=== PATIENT | male | born 1960 | race American Indian/Alaskan Native ===

== ENCOUNTER 2017-10-30 11:00 | Emergency (ER) | payer BC ==
[2017-10-30 11:15] VITALS: BP 146/91
--- NOTE | 2017-10-30 11:50 | ED PDOC ---
Arrival/HPI - General Chief Complaint: Back Pain Time Seen by Provider: 10/30/17 11:50 - History of Present Illness Narrative History of Present Illness (Text): 10/30/17 11:50 A 57 year old male, whose past medical history includes herniated disks in the lower back, presents to the emergency department complaining of lower back pain since yesterday. Patient reports pain is radiating to his right leg and he cannot stand up for an extended length of time. Patient also reports he is currently taking vitamin D and percocets prescribed from his PMD. Patient denies any fever, chills, shortness of breath, chest pain, diarrhea, nausea, vomiting, urinary symptoms, neck pain, headache, dizziness, or any other complaints. PMD: Dr. Corrales Time/Duration: 24 hours (yesterday) Symptom Onset: Gradual Symptom Course: Unchanged Activities at Onset: Light Context: Home Past Medical History - Provider Review Nursing Documentation Reviewed: Yes - Infectious Disease Hx of Infectious Diseases: None - Cardiac Hx Cardiac Disorders: Yes Hx Hypertension: Yes - Pulmonary Hx Respiratory Disorders: No - Musculoskeletal/Rheumatological Hx Back Pain: Yes Hx Herniated Disk: Yes - Gastrointestinal Hx Gastrointestinal Disorders: No - Genitourinary/Gynecological Hx Genitourinary Disorders: No - Psychiatric Hx Psychophysiologic Disorder: No Hx Substance Use: No - Surgical History Hx Orthopedic Surgery: Yes - Anesthesia Hx Anesthesia: Yes Hx Anesthesia Reactions: No Family/Social History - Physician Review Nursing Documentation Reviewed: Yes Family/Social History: Unknown Family HX Smoking Status: Unknown If Ever Smoked Hx Alcohol Use: No Hx Substance Use: No Allergies/Home Meds Allergies/Adverse Reactions: Allergies No Known Allergies Allergy (Verified 10/30/17 11:14) Home Medications: Home Meds Medication Instructions Recorded Confirmed Valsartan 320 mg PO DAILY 10/30/17 10/30/17 Review of Systems - Physician Review All systems were reviewed & negative as marked: Yes - Review of Systems Constitutional: absent: Fevers, Night Sweats Respiratory: absent: SOB Cardiovascular: absent: Chest Pain Gastrointestinal: absent: Diarrhea, Nausea, Vomiting Genitourinary Male: absent: Urinary Output Changes Musculoskeletal: Back Pain (pain radiates down to his right leg). absent: Normal, Arthralgias, Neck Pain, Joint Swelling, Myalgias Neurological: absent: Headache, Dizziness Physical Exam Vital Signs Reviewed: Yes Vital Signs Temp Pulse Resp BP Pulse Ox 10/30/17 11:12 98.1 F 72 18 146/91 H 98 Temperature: Afebrile Blood Pressure: Hypertensive Pulse: Tachycardic Respiratory Rate: Normal Appearance: Positive for: Well-Appearing, Non-Toxic, Comfortable Pain Distress: None Mental Status: Positive for: Alert and Oriented X 3 - Systems Exam Head: Present: Atraumatic, Normocephalic Pupils: Present: PERRL Extroacular Muscles: Present: EOMI Conjunctiva: Present: Normal Mouth: Present: Moist Mucous Membranes Neck: Present: Normal Range of Motion Respiratory/Chest: Present: Clear to Auscultation, Good Air Exchange. No: Respiratory Distress, Accessory Muscle Use Cardiovascular: Present: Regular Rate and Rhythm, Normal S1, S2. No: Murmurs Abdomen: No: Tenderness, Distention, Peritoneal Signs Back: No: Midline Tenderness Upper Extremity: Present: Normal Inspection. No: Cyanosis, Edema Lower Extremity: Present: NORMAL PULSES, Normal ROM (full ROM of right hip ), Tenderness, Other (Mild tenderness near SI joint). No: Normal Inspection, Edema , CALF TENDERNESS, Cyanosis, Shalom's Sign Neurological: Present: GCS=15, CN II-XII Intact, Speech Normal Skin: Present: Warm, Dry, Normal Color. No: Rashes Psychiatric: Present: Alert, Oriented x 3, Normal Insight, Normal Concentration Medical Decision Making ED Course and Treatment: 10/30/17 12:55 Impression: 57 year old male presenting to the emergency department complaining of lower back pain. Plan: -- Flexeril -- Decadron Injection -- Toradol -- Xray of LS Spine with OBL -- Reassess and disposition Prior Visits: Notes and results from previous visits were reviewed. Progress Notes: 10/30/17 12:49 patient with hx lumbar HNP presents with recurrent low back pain with radicular pain. no acute neuro deficits. xray done to rule out overt bony pathology. patient informed to follow up with his pcp for further eval which may include another MRI. patient remained stable throughout ED course. secondarily, patient reports itching in the right ear-there was no pain and on inspection there was no irritation of the ear canal and the TM was clear without effusion - RAD Interpretation Radiology Orders: 10/30/17 11:50 LS SPINE WITH OBL > 18 YRS OLD [RAD] Stat - Medication Orders Current Medication Orders: Discontinued Medications Cyclobenzaprine HCl (Flexeril) 5 mg PO STAT STA Stop: 10/30/17 11:51 Last Admin: 10/30/17 12:21 Dose: 5 mg Dexamethasone (Decadron Inj) 10 mg IM STAT STA Stop: 10/30/17 11:52 Last Admin: 10/30/17 12:22 Dose: 10 mg IM Administration Charges Document 10/30/17 12:22 [email or web address] (Rec: 10/30/17 12:22 [email or web address] [id number]) Injection Site MAR Injection Site Right Gluteus Lucius Charges for Administration # of IM Administrations 1 Ketorolac Tromethamine (Toradol) 60 mg IM STAT STA Stop: 10/30/17 11:51 Last Admin: 10/30/17 12:21 Dose: 60 mg MAR Pain Assessment Document 10/30/17 12:21 [email or web address] (Rec: 10/30/17 12:21 [email or web address] [id number]) Pain Reassessment Is this a pain reassessment? No Sleep Is patient sleeping during reassessment? No Presence of Pain Presence of Pain Yes Pain Scale Used Pain Scale Used Numeric Location Pain Location Body Site Generalized Description Description Constant Intensity of Pain at present 8 Pain Behavior Facial Grimacing Aggravating Factors Changing Position Alleviating Factors/Management Medication Techniques Alleviating Factors Medication IM Administration Charges Document 10/30/17 12:21 [email or web address] (Rec: 10/30/17 12:21 [email or web address] [id number]) Injection Site MAR Injection Site Right Gluteus Lucius Charges for Administration # of IM Administrations 1 - Scribe Statement The provider has reviewed the documentation as recorded by the Yuriibjustus Rascon All medical record entries made by the Yuriibjustsu were at my direction and personally dictated by me. I have reviewed the chart and agree that the record accurately reflects my personal performance of the history, physical exam, medical decision making, and the department course for this patient. I have also personally directed, reviewed, and agree with the discharge instructions and disposition. Disposition/Present on Arrival - Present on Arrival Any Indicators Present on Arrival: No History of DVT/PE: No History of Uncontrolled Diabetes: No Urinary Catheter: No History of Decub. Ulcer: No History Surgical Site Infection Following: None - Disposition Have Diagnosis and Disposition been Completed?: Yes Diagnosis: Radiculopathy of lumbosacral region Disposition: HOME/ ROUTINE Disposition Time: 12:51 Patient Plan: Discharge Patient Problems: Current Active Problems Problem Status Onset Radiculopathy of lumbosacral region Acute Condition: STABLE Discharge Instructions (ExitCare): Radiculopathy Print Language: CHINESE Additional Instructions: RASHAD YAP, thank you for letting us take care of you today. Your provider was Dr. Macario Boss and you were treated for back pain. The emergency medical care you received today was directed at your acute symptoms. If you were prescribed any medication, please fill it and take as directed. It may take several days for your symptoms to resolve. Return to the Emergency Department if your symptoms worsen, do not improve, or if you have any other problems. Please contact your doctor or call one of the physicians/clinics you have been referred to that are listed on the Patient Visit Information form that is included in your discharge packet. Bring any paperwork you were given at discharge with you along with any medications you are taking to your follow up visit. Our treatment cannot replace ongoing medical care by a primary care provider outside of the emergency department. Thank you for allowing the [facility] team to be part of your care today. If you had an X-Ray or CT scan: A Radiologist will review the ED reading if any change in treatment is needed we will contact you. If you had a blood, urine, or wound culture: It will take several days for the results, if any change in treatment is needed we will contact you. If you had an STI test: It will take 48 hours for the results. Please call after 1 week if you have not heard back. Prescriptions: Cyclobenzaprine [Flexeril] 5 mg PO TID #15 tab Ibuprofen [Motrin Tab] 600 mg PO QID #42 tab Prednisone [Deltasone] 20 mg PO DAILY 5 Days #10 tablet Referrals: Dena Corrales MD [Primary Care Provider] - Follow up with primary Forms: [employer] (Gabonese), WORK NOTE
[2017-10-30 13:03] VITALS: PULSE 75; RESP 19; TEMP 98; O2SAT 99
--- NOTE | 2017-10-30 15:44 | RAD ---
Date of service: 10/30/2017 PROCEDURE: Radiographs of the Lumbar Spine. HISTORY: Pain COMPARISON: No prior. FINDINGS: BONES: No evidence of acute compression fracture nor retropulsed fragments. Vertebral bodies exhibit normal stature of. Vertebral bodies and facets normally aligned. DISC SPACES: There is mild disc space narrowing L5-S1 and L4-L5 levels. The facet joints also quite hypertrophic L5-S1, L4-L5 and to a lesser degree L3-L4 levels. Mild facet overgrowth L2-L3 level. Small marginal osteophyte formation seen at several lower thoracic and upper lumbar levels. OTHER FINDINGS: Questionable old healed fracture deformities of the left symphysis IMPRESSION: No acute fractures. Multilevel degenerative spondylosis as described.
== END 2017-10-30 13:02 | disposition home or self-care (01) ==
LOC: ED 11:00
DX: M54.17 Radiculopathy, lumbosacral region (principal); I10 Essential (primary) hypertension
CPT/HCPCS: 72110; 96372; 99282; J1100; J1885

== ENCOUNTER 2017-11-05 14:20 | Inpatient (IN) | payer BC ==
[2017-11-05 16:28] LABS: BASO # 0.01 K/mm3 (0.0-2.0); BASO % 0.1 % (0.0-3.0); EOS % 0.4 % (1.5-5.0); GRAN # 6.25 (1.4-6.5); GRAN % 63.8 % (50.0-68.0); HEMOGLOBIN 14.6 g/dL (14.0-18.0); LYMPH # 2.6 (1.2-3.4); LYMPH % 26.2 % (22.0-35.0); MEAN CELL VOLUME 83.2 fl (80.0-105.0); MEAN CORPUSCULAR HEMOGLOBIN 27.2 pg (25.0-35.0); MEAN CORPUSCULAR HGB CONC 32.7 g/dl (31.0-37.0); MEAN PLATELET VOLUME 9.3 fl (7.0-11.0); MONO # 0.9 (0.1-0.6); MONO % 9.5 % (1.0-6.0); RBC 5.36 10^6/uL (3.5-6.1); RED CELL DISTRIBUTION WIDTH 14.3 % (11.5-14.5); WHITE BLOOD COUNT 9.8 10^3/ul (4.5-11.0)
[2017-11-05 16:35] LABS: ALB/GLOB RATIO 1.3 (1.1-1.8); ALBUMIN 4.4 g/dL (3.0-4.8); ALT/SGPT 28 U/L (7-56); AST/SGOT 31 U/L (17-59); BLOOD UREA NITROGEN 15 mg/dL (7-21); CALCIUM 10.6 mg/dL (8.4-10.5); GFR NON-AFRICAN AMERICAN > 60
--- NOTE | 2017-11-05 17:20 | ED PDOC ---
Arrival/HPI - General Chief Complaint: Back Pain Time Seen by Provider: 11/05/17 15:06 Historian: Patient - History of Present Illness Narrative History of Present Illness (Text): 11/05/17 17:17 57 -year-old male with a history of chronic back pain presents today with a 6 day history of worsening pain in the right leg. Patient states 6 days ago he suddenly developed pain in the low back and right hip that radiates into the right leg. Patient states he has a numbness and tingling sensation in the leg and has noticed a slight decrease in strength on the left. Patient states he was seen in the emergency room and was given referral to an orthopedist for which he saw in the office and was then started on gabapentin. Patient states despite the Percocet from his primary care physician/pain management doctor and despite the gabapentin and steroid-induced the patient is not feeling any better. Patient states he feels as if when he is walking his right leg is going to give out on him. Patient states this is more concerning to him because he had an injury to his left leg for which he uses his right leg for the majority of him ambulating. Patient states that while in a sitting position he has no pain. Patient states he has only pain if he stands for a few minutes are starts walking. Patient denies bladder or bowel incontinence. He denies any urinary symptoms. He denies chest pain or shortness of breath. Denies headaches dizziness or weakness. Time/Duration: Other (6 days) Symptom Onset: Gradual Symptom Course: Worsening Quality: Aching, Stabbing Severity Level: Severe (only when standing/walking) Past Medical History - Provider Review Nursing Documentation Reviewed: Yes - Travel History Have you recently traveled outside [place] w/in the past 3 mons?: No - Infectious Disease Hx of Infectious Diseases: None - Cardiac Hx Cardiac Disorders: Yes Hx Hypertension: Yes - Pulmonary Hx Respiratory Disorders: No - Musculoskeletal/Rheumatological Hx Back Pain: Yes Hx Herniated Disk: Yes - Gastrointestinal Hx Gastrointestinal Disorders: No - Genitourinary/Gynecological Hx Genitourinary Disorders: No - Psychiatric Hx Psychophysiologic Disorder: No Hx Substance Use: No - Surgical History Hx Orthopedic Surgery: Yes - Anesthesia Hx Anesthesia: Yes Hx Anesthesia Reactions: No Family/Social History - Physician Review Nursing Documentation Reviewed: Yes Family/Social History: Unknown Family HX Smoking Status: Unknown If Ever Smoked Hx Alcohol Use: No Hx Substance Use: No Allergies/Home Meds Allergies/Adverse Reactions: Allergies No Known Allergies Allergy (Verified 11/05/17 15:02) Home Medications: Home Meds Medication Instructions Recorded Confirmed Valsartan 320 mg PO DAILY 10/30/17 11/05/17 Review of Systems - Review of Systems Constitutional: absent: Fatigue, Fevers Respiratory: absent: SOB, Cough Cardiovascular: absent: Chest Pain, Palpitations Gastrointestinal: absent: Abdominal Pain, Constipation, Diarrhea, Nausea, Vomiting Genitourinary Male: absent: Dysuria, Frequency, Hematuria Musculoskeletal: Arthralgias, Back Pain. absent: Neck Pain Skin: absent: Rash, Pruritis Neurological: absent: Headache, Dizziness Psychiatric: absent: Anxiety, Depression Physical Exam Vital Signs Reviewed: Yes Vital Signs Temp Pulse Resp BP Pulse Ox 11/05/17 17:17 69 18 124/84 95 11/05/17 15:00 98.2 F 69 18 160/78 H 98 Temperature: Afebrile Blood Pressure: Hypertensive Pulse: Regular Respiratory Rate: Normal Appearance: Positive for: Well-Appearing, Non-Toxic, Comfortable Pain Distress: None Mental Status: Positive for: Alert and Oriented X 3 - Systems Exam Head: Present: Atraumatic Neck: Present: Normal Range of Motion Respiratory/Chest: Present: Clear to Auscultation, Good Air Exchange. No: Respiratory Distress, Accessory Muscle Use Cardiovascular: Present: Regular Rate and Rhythm, Normal S1, S2. No: Murmurs Abdomen: No: Tenderness, Distention, Rebound, Guarding Back: Present: Normal Inspection. No: CVA Tenderness, Midline Tenderness, Paraspinal Tenderness, Pain with Leg Raise Upper Extremity: Present: Normal Inspection, Normal ROM Lower Extremity: Present: NORMAL PULSES, Normal ROM, Neurovascularly Intact, Capillary Refill < 2 s. No: CALF TENDERNESS, Tenderness, Swelling, Erythema, Temperature Abnormalties Neurological: Present: GCS=15, Speech Normal, Motor Func Grossly Intact, Normal Sensory Function Skin: Present: Warm, Dry, Normal Color. No: Rashes Psychiatric: Present: Alert, Oriented x 3 Medical Decision Making ED Course and Treatment: 11/05/17 17:20 57-year-old with worsening right leg pain and right leg weakness 6 days. hx of herniated disc. no recent trauma. no bladder or bowel incontinence. CBC: wnl CMP wnl Urinalysis: wnl Venous duplex of the right lower extremity: No DVT X-ray of the right hip: No fracture CAT scan of the lumbar spine:FINDINGS: VERTEBRAE: Normal lumbar curvature is minimally interrupted by grade 1 spondylolisthesis of L5 posterior L4 and S1 anterior to L5. Minimal residual intervertebral disc space remains L5-S1 with prominent endplate sclerosis and vacuum disc changes compatible with advanced, late stage degenerative disc disease. Lesser degenerative disc changes identified at L4-5. Advanced degenerative disc disease is seen from T11 12th through L1-2 inclusively. No destructive bony lesions are identified multilevel facet joint degenerative arthropathy appreciated predominate mid inferior levels. Prevertebral paraspinal soft tissues reflect punctate intrarenal calculi in the left kidney without definite hydronephrosis, cortical defect at the left kidney suggesting infarction at the upper pole with a small cyst adjacent to it. Small hepatic calcifications incidentally noted at the central liver region above the level of the carlos hepatis. DISCS/SPINAL CANAL/NEURAL FORAMINA: L1-2: Limited disc osteophyte is seen posteriorly without significant stenosis resulting. L2-3: Unremarkable. L3-4: Unremarkable. L4-5: Grade 1 spondylolisthesis. Borderline bilateral neural foraminal stenosis. No significant central canal stenosis. L5-S1: Grade 1 spondylolisthesis. Mild bilateral neural foraminal stenosis. No significant central canal stenosis. OTHER FINDINGS: None. IMPRESSION: Generally widely capacious central canal despite grade 1 spondylolisthesis at L4 -5 and L5-S1 as discussed above. No significant central stenosis appreciated throughout the examination although borderline L4-5 and mild L5-S1 bilateral neural foraminal stenoses are suggested. Advanced degenerative disease L5-S1 followed by T11-12 through L1-2 disc interspace is inclusively. Case was discussed in depth with Dr. Hu; will admit the patient observational status to med/surg for right leg weakness, back pain. all aspects of this case were discussed the attending of record. impression: back pain, leg pain Admit observational status to MedSurg - Lab Interpretations Lab Results: 11/05/17 16:19 11/05/17 16:19 Lab Results 11/05/17 17:48: Urine Color Yellow, Urine Appearance Clear, Urine pH 6.5, Ur Specific [place] 1.015, Urine Protein Negative, Urine Glucose (UA) Negative, Urine Ketones Negative, Urine Blood Negative, Urine Nitrate Negative, Urine Bilirubin Negative, Urine Urobilinogen 0.2, Ur Leukocyte Esterase Negative 11/05/17 16:19: WBC 9.8, RBC 5.36, Hgb 14.6, Hct 44.6, MCV 83.2, MCH 27.2, MCHC 32.7, RDW 14.3, Plt Count 258, MPV 9.3, Gran % 63.8, Lymph % (Auto) 26.2, [place] % (Auto) 9.5 H, Eos % (Auto) 0.4 L, Baso % (Auto) 0.1, Gran # 6.25, Lymph # ( Auto) 2.6, [place] # (Auto) 0.9 H, Eos # (Auto) 0.0, Baso # (Auto) 0.01 11/05/17 16:19: Sodium 142, Potassium 4.4, Chloride 102, Carbon Dioxide 28, Anion Gap 16, BUN 15, Creatinine 1.1, Est GFR ( Amer) > 60, Est GFR (Non- Af Amer) > 60, Random Glucose 121 H, Calcium 10.6 H, Total Bilirubin 0.5, AST 31 , ALT 28, Alkaline Phosphatase 95, Total Protein 7.6, Albumin 4.4, Globulin 3.3 , Albumin/Globulin Ratio 1.3 - RAD Interpretation Radiology Orders: 11/05/17 15:46 LUMBAR SPINE W/O CONTRAST [CT] Stat HIP MIN 2V W/ PELVIS RT [RAD] Stat DUPLEX LOWER EXTRM VEIN RIGHT [US] Stat 11/05/17 15:58 CHEST PORTABLE [RAD] Stat Disposition/Present on Arrival - Present on Arrival Any Indicators Present on Arrival: No History of DVT/PE: No History of Uncontrolled Diabetes: No Urinary Catheter: No History of Decub. Ulcer: No History Surgical Site Infection Following: None - Disposition Have Diagnosis and Disposition been Completed?: Yes Diagnosis: Back pain Disposition: HOSPITALIZED Disposition Time: 19:00 Patient Plan: Observation Condition: FAIR Forms: [employer] (Nicaraguan)
--- NOTE | 2017-11-05 17:53 | CT ---
Date of service: 11/05/2017 PROCEDURE: CT Lumbar Spine without contrast HISTORY: back pain COMPARISON: Lumbar spine radiographs 10/30/2017. TECHNIQUE: Axial computed tomography images were obtained of the lumbar spine without the use of intravenous contrast. Coronal and sagittal reformatted images were created and reviewed. Radiation dose: Total exam DLP = 343.04 mGy-cm. This CT exam was performed using one or more of the following dose reduction techniques: Automated exposure control, adjustment of the mA and/or kV according to patient size, and/or use of iterative reconstruction technique. FINDINGS: VERTEBRAE: Normal lumbar curvature is minimally interrupted by grade 1 spondylolisthesis of L5 posterior L4 and S1 anterior to L5. Minimal residual intervertebral disc space remains L5-S1 with prominent endplate sclerosis and vacuum disc changes compatible with advanced, late stage degenerative disc disease. Lesser degenerative disc changes identified at L4-5. Advanced degenerative disc disease is seen from T11 12th through L1-2 inclusively. No destructive bony lesions are identified multilevel facet joint degenerative arthropathy appreciated predominate mid inferior levels. Prevertebral paraspinal soft tissues reflect punctate intrarenal calculi in the left kidney without definite hydronephrosis, cortical defect at the left kidney suggesting infarction at the upper pole with a small cyst adjacent to it. Small hepatic calcifications incidentally noted at the central liver region above the level of the carlos hepatis. DISCS/SPINAL CANAL/NEURAL FORAMINA: L1-2: Limited disc osteophyte is seen posteriorly without significant stenosis resulting. L2-3: Unremarkable. L3-4: Unremarkable. L4-5: Grade 1 spondylolisthesis. Borderline bilateral neural foraminal stenosis. No significant central canal stenosis. L5-S1: Grade 1 spondylolisthesis. Mild bilateral neural foraminal stenosis. No significant central canal stenosis. OTHER FINDINGS: None. IMPRESSION: Generally widely capacious central canal despite grade 1 spondylolisthesis at L4-5 and L5-S1 as discussed above. No significant central stenosis appreciated throughout the examination although borderline L4-5 and mild L5-S1 bilateral neural foraminal stenoses are suggested. Advanced degenerative disease L5-S1 followed by T11-12 through L1-2 disc interspace is inclusively.
[2017-11-05 18:08] LABS: PH,URINE 6.5 (4.7-8.0); URINE BILIRUBIN NEGATIVE (NEGATIVE); URINE BLOOD NEGATIVE (NEGATIVE); URINE GLUCOSE (UA) NEGATIVE (NEGATIVE); URINE LEUKOCYTE ESTERASE NEGATIVE Leu/uL (NEGATIVE); URINE PROTEIN NEGATIVE mg/dL (<30 mg/dL); URINE UROBILINOGEN 0.2 E.U./dL (<1 E.U./dL)
[2017-11-05 18:10] LABS: URINE APPEARANCE CLEAR (CLEAR); URINE COLOR YELLOW (YELLOW)
--- NOTE | 2017-11-05 20:40 | US ---
PROCEDURE: Right lower extremity venous US HISTORY: Leg pain and swelling. Evaluate for DVT. PHYSICIAN(S): Chris Duarte M.D. TECHNIQUE: Duplex sonography and color-flow Doppler with graded compression were used to evaluate the deep venous system of the right lower extremity. FINDINGS: The visualized deep venous system of the right lower extremity is sonographically normal and compressible. Normal waveforms and augmentation are seen. There is no sonographic evidence for deep venous thrombosis in the visualized segments of the right lower extremity. IMPRESSION: 1. No sonographic evidence for deep venous thrombosis in the visualized segments of the right lower extremity.
[2017-11-05 22:43] VITALS: O2SAT 99
[2017-11-06 03:47] VITALS: BMI 25.0
[2017-11-06] MEDS ORDERED: Morphine 2 mg/ml ISec IVP STA (04:01)
[2017-11-06] MEDS ORDERED: Sodium Chloride 0.9% 1,000 ML IV SCH (09:45)
--- NOTE | 2017-11-06 10:26 | RAD ---
Date of service: 11/05/2017 HISTORY: back pain COMPARISON: No prior. FINDINGS: LUNGS: The lungs are well inflated and clear. PLEURA: No significant pleural effusion identified, no pneumothorax apparent. CARDIOVASCULAR: Normal. OSSEOUS STRUCTURES: No significant abnormalities. VISUALIZED UPPER ABDOMEN: Normal. OTHER FINDINGS: None. IMPRESSION: No acute findings.
--- NOTE | 2017-11-06 10:42 | RAD ---
PROCEDURE: Right Hip Radiographs. HISTORY: right hip/leg pain/back pain COMPARISON: None. FINDINGS: BONES: Bone alignment is normal. There is no acute displaced fracture or bone destruction.There is diffuse bone demineralization. JOINTS: There is mild degenerative osteoarthrosis in the hip joints with reduced joint spaces and marginal spurring. There is mild degenerative osteoarthrosis in the sacroiliac joints. SOFT TISSUES: Normal. OTHER FINDINGS: None. IMPRESSION: No acute fracture or dislocation. 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
[2017-11-06] MEDS ORDERED: Dexamethasone 4 MG in Sodium Chloride 0.9% 50 ML IV ONE (11:42)
[2017-11-06] MEDS ORDERED: Lidocaine 5% Patch TD SCH (11:45)
[2017-11-06 12:49] VITALS: BP 143/88; PULSE 63; RESP 18; TEMP 98.1
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
--- NOTE | 2017-11-06 13:15 | CON ---
Copied To: Jalen Alatorre MD Attending MD: Jalen Alatorre MD DATE: 11/06/2017 NEUROLOGY CONSULTATION CHIEF COMPLAINT: Back pain. HISTORY OF PRESENT ILLNESS: This is a 57-year-old man with history of chronic back pain who sees pain management, Dr. Mariely Bruno, who presented with worsening back pain radiating down the right buttocks down to the right anterolateral aspect of the thigh with some paresthesias numbness and felt like decreased strength in his quad, though he is able to flex and extend his quad without any difficulty during my examination. He underwent a CAT scan of the lumbosacral spine basically showing a grade I spondylolisthesis of L5, posterior L4 and S1 anterior to L5. He has a minimal residual intervertebral disk space remains L5-S1 this change is compared with advanced stage degenerative disc disease. He also has some advanced degenerative disk disease from T11-T12. Apparently, his reflexes are present. He has mild foraminal narrowing on L4-S1 level. He will be going for an MRI of the lumbosacral spine today. He has tried gabapentin in the past which has not helped him, but it was a low dose of 100 mg. We will give Lyrica 50 mg p.o. b.i.d. for neuropathic relief and give one dose of dexamethasone and Lidoderm patch and he will follow up with his pain management, Dr. Mariely Bruno. ALLERGIES: NO KNOWN DRUG ALLERGIES. SOCIAL HISTORY: No illicit drug use, smoking, or EtOH abuse. FAMILY HISTORY: Noncontributory. PAST MEDICAL HISTORY: As above. MEDICATIONS: Reviewed by nurse per reconciliation sheet. REVIEW OF SYSTEMS: Fourteen-point review of systems negative except per the HPI. CURRENT LABORATORY DATA: Sodium is 142, potassium 4.4, chloride 102, carbon dioxide 28, BUN of 15, creatinine 1.1, random glucose of 121. PHYSICAL EXAMINATION: VITAL SIGNS: Temperature is 98.3, pulse rate 58, blood pressure 130/98, respiratory rate of 20, oxygen saturation 99% by room air. GENERAL: The patient is sitting up in bed, in no acute distress. HEENT: Head is atraumatic, normocephalic. PERRLA. Extraocular muscles intact. NECK: Supple. No JVD. No adenopathy noted. LUNGS: Clear to auscultation. No adventitious sounds. HEART: S1, S2. Normal rate and rhythm. No murmurs, rubs, or gallops. ABDOMEN: Soft, nontender, and nondistended. Bowel sounds are present. EXTREMITIES: No clubbing. No cyanosis. Peripheral pulses are 2+ bilaterally. NEUROLOGIC: The patient is alert and oriented to person, place, month and year. Speech is fluent without any errors. Motor exam: Moves all extremities equally. No pronator drift seen. He moves all extremities, able to flex and extend his quadriceps muscles without any difficulty. Sensory exam: Light touch, pinprick, proprioception, and vibration are intact. DTRs are 2+ throughout. Coordination: [id number] intact. No dysmetria noted. Gait is deferred for now. ASSESSMENT AND PLAN: This is a 57-year-old man with history of chronic back pain, seen Dr. Mariely Bruno for his pain management and his worsening low back pain radiating down the right buttocks down to the right anterolateral aspect of the thigh until down to the leg with some paresthesias aggravated by prolonged positions. At this time, he has some underlying [id number] lumbosacral neuritis. We will recommend; 1. Outpatient physical therapy in terms of myofascial pain relief, lumbosacral stretching, therapeutic exercise, TENS unit, ultrasound therapy. 2. We will give him Lyrica 50 mg p.o. b.i.d. for neuropathic relief. 3. We will give him one dose stat of dexamethasone 4 mg for antiinflammatory effect. 4. Lidoderm patch. 5. MRI of the lumbosacral spine. 6. We will follow up with Dr. Mariely Bruno as an outpatient in regards to his pain management. It will be more effective in this situation. Thank you for this consult. Jalen Alatorre MD
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
--- NOTE | 2017-11-06 14:32 | MRI ---
Date of service: 11/06/2017 PROCEDURE: MR LUMBAR SPINE WITHOUT CONTRAST HISTORY: Back pain COMPARISON: CT lumbar spine without contrast from 11/05/2017 TECHNIQUE: Multiecho multiplanar sequences were performed through the lumbar spine without the use of intravenous contrast. FINDINGS: There is 4 mm degenerative retrolisthesis of L4 on L5 and 5 mm degenerative anterior listhesis of L4 on L5. . There is normal lumbar lordosis. There is no acute fracture or spondylolysis. Bone marrow signal is within normal limits. The conus medullaris terminates at normal level and the nerve roots of cauda equina are normal. The spinal canal is widely patent. The paraspinous soft tissues are normal. There is cortical scarring and probable cysts in the left kidney. Otherwise the imaged retroperitoneum is grossly normal in appearance. T12-L1: No disc herniation, neural foraminal or spinal canal stenosis. L1-2: Left posterolateral, foraminal and far lateral annular tear and disc protrusion without central spinal canal stenosis. No neural foraminal narrowing. L2-3: Small left posterolateral and foraminal disc protrusion. No central spinal canal stenosis or neural foraminal narrowing. L3-4: No disc herniation, spinal canal stenosis or neural foraminal narrowing. L4-5: Mild posterior disc bulge and mild facet arthropathy without spinal canal stenosis or neural foraminal narrowing. L5-S1: Diffuse posterior disc bulge without spinal canal stenosis. Mild bilateral facet arthropathy contribute to mild neural foraminal narrowing. OTHER FINDINGS: None. IMPRESSION: Mild multilevel degenerative disc disease, worse at L5-S1 with diffuse posterior disc bulge and mild neural foraminal narrowing. No spinal canal stenosis. Additional comments as described above.
== END 2017-11-06 14:14 | disposition left against medical advice (07) | DRG 552 ==
LOC: ED 14:20 → ERH 19:23 → 5RSO 21:18 → OBSVTOIN 11-06 09:34
PROVIDERS: ADMIT Internal Medicine; ATTEND Internal Medicine
DX: M43.16 Spondylolisthesis, lumbar region (principal); M54.17 Radiculopathy, lumbosacral region; I10 Essential (primary) hypertension; E83.52 Hypercalcemia; M51.36 Other intervertebral disc degeneration, lumbar region; M51.34 Other intervertebral disc degeneration, thoracic region; G89.29 Other chronic pain; R26.81 Unsteadiness on feet

== ENCOUNTER 2018-08-07 11:46 | Emergency (ER) | payer BC ==
[2018-08-07 11:46] VITALS: BMI 25.0
[2018-08-07 12:05] VITALS: BP 133/73; PULSE 78; RESP 18; TEMP 98.8; O2SAT 97
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
--- NOTE | 2018-08-07 13:48 | RAD ---
Date of service: 08/07/2018 HISTORY: cough COMPARISON: Chest radiograph dated 11/05/2017. TECHNIQUE: Chest PA and lateral views FINDINGS: LUNGS: No active pulmonary disease. PLEURA: No significant pleural effusion identified. No pneumothorax apparent. CARDIOVASCULAR: Aortic atherosclerotic calcifications. Cardiomediastinal silhouette within normal limits. OSSEOUS STRUCTURES: Unchanged. VISUALIZED UPPER ABDOMEN: Normal. OTHER FINDINGS: None. IMPRESSION: No active disease.
[2018-08-07 14:13] LABS: BASO # 0.04 K/mm3 (0.0-2.0); BASO % 0.6 % (0.0-3.0); EOS # 0.9 (0.0-0.7); EOS % 15.1 % (1.5-5.0); HEMOGLOBIN 14.9 g/dL (14.0-18.0); LYMPH # 1.8 (1.2-3.4); MEAN CELL VOLUME 82.8 fl (80.0-105.0); MEAN CORPUSCULAR HEMOGLOBIN 27.3 pg (25.0-35.0); MEAN PLATELET VOLUME 9.6 fl (7.0-11.0); MONO # 0.5 (0.1-0.6); MONO % 7.4 % (1.0-6.0); RBC 5.45 10^6/uL (3.5-6.1); RED CELL DISTRIBUTION WIDTH 13.2 % (11.5-14.5); WHITE BLOOD COUNT 6.2 10^3/uL (4.5-11.0)
[2018-08-07 14:25] LABS: ALB/GLOB RATIO 1.1 (1.1-1.8); ALBUMIN 4.4 g/dL (3.0-4.8); ALT/SGPT 26 U/L (7-56); AST/SGOT 31 U/L (17-59); BLOOD UREA NITROGEN 14 mg/dL (7-21); GFR NON-AFRICAN AMERICAN > 60
[2018-08-07 14:27] LABS: CALCIUM 11.4 mg/dL (8.4-10.5)
== END 2018-08-07 15:12 | disposition home or self-care (01) ==
LOC: ED 11:46
DX: R05 Cough (principal); I10 Essential (primary) hypertension